=== PATIENT | female | born 1970 | race Caucasian/White ===

== ENCOUNTER 2016-04-13 11:55 | Emergency (ER) | payer OTHER ==
[~2016-04-13] VITALS: Ht 157.5 cm; Wt 80.7 kg
[2016-04-13] MEDS ORDERED: NAPROSYN500 MG PO (14:06)
[2016-04-13 14:55] VITALS: BP 106/77
== END 2016-04-13 14:57 | disposition home or self-care (01) ==
LOC: EME 11:55
DX: S93.402A Sprain of unspecified ligament of left ankle, initial encounter (principal); W10.9XXA Fall (on) (from) unspecified stairs and steps, initial encounter
CPT/HCPCS: 73610; 99281; 99283